=== PATIENT | male | born 1950 | race Caucasian/White ===

== ENCOUNTER → 2016-09-08 | Outpatient (CLI) | payer BC ==
[~2016-09-08] MED LIST: ADVINUNK; ALBU1AER9; MULT-506 PO; ZRYTEC
--- NOTE | 2016-09-08 10:29 | DIAGNOSTIC IMAGING REPORT ---
CHEST 2 VIEWS ROUTINE CLINICAL HISTORY: Cough. COMPARISON STUDY: Chest radiograph May 10, 2011. FINDINGS: Lung hyperexpansion is noted. No consolidation is identified. There is no pneumothorax or pleural effusion. Heart size is normal. Pulmonary vascularity is normal. IMPRESSION: 1. No acute cardiopulmonary findings. 2. Lung hyperexpansion. Electronically signed by: Mik Cha M.D. 09/08/2016 10:27 AM Dictated Date/Time: 09/08/2016 10:26 AM
== END | disposition home or self-care (01) ==
LOC: C.RAD1850 09:34
PROVIDERS: ATTEND Internal Medicine
DX: R05 Cough (principal)

== ENCOUNTER → 2016-11-11 | Outpatient (CLI) | payer BC ==
[2016-11-11 09:37] LABS: BASO % 1.2 %; BASO ABS # 0.06 K/uL (0-0.2); COMPLETE YES; EOS % 3.1 %; HEMATOCRIT 41.8 % (42-52); IG% 0.2 %; LYMPH % 22.5 %; MEAN CELL VOLUME 92.9 fL (80-100); MEAN CORPUSCULAR HEMOGLOBIN 31.8 pg (25-34); MEAN CORPUSCULAR HGB CONC 34.2 g/dl (32-36); MEAN PLATELET VOLUME 8.6 fL (7.4-10.4); MONO % 9.4 %; NEUT % 63.6 %; PLATELET COUNT 276 K/uL (130-400); WHITE BLOOD COUNT 4.88 K/uL (4.8-10.8)
[2016-11-11 09:48] LABS: ALT/SGPT 33 U/L (12-78); AST/SGOT 33 U/L (15-37); BLOOD UREA NITROGEN 12 mg/dl (7-18); BUN/CREATININE RATIO 13.2 (10-20); CARBON DIOXIDE 27 mmol/L (21-32); CHLORIDE 104 mmol/L (98-107); CHOLESTEROL 200 mg/dl (0-200); CREATININE 0.92 mg/dl (0.60-1.40); GLUCOSE 98 mg/dl (70-99); POTASSIUM 3.9 mmol/L (3.5-5.1); SODIUM 139 mmol/L (136-145); TRIGLYCERIDES 49 mg/dl (0-150); VERY LOW DENSITY LIPOPROT CALC 10 mg/dl
[2016-11-11 09:52] LABS: CHOLESTEROL/HDL RATIO 2.5; HDL CHOLESTEROL 80 mg/dl; LDL CHOLESTEROL CALCULATED 110 mg/dl
[2016-11-11 10:12] LABS: CALCIUM 9.2 mg/dl (8.5-10.1)
== END | disposition home or self-care (01) ==
LOC: C.LAB1850 08:19
PROVIDERS: ATTEND Internal Medicine
DX: E78.5 Hyperlipidemia, unspecified (principal); E55.9 Vitamin D deficiency, unspecified; K21.9 Gastro-esophageal reflux disease without esophagitis; R73.9 Hyperglycemia, unspecified; Z12.5 Encounter for screening for malignant neoplasm of prostate

== ENCOUNTER → 2017-09-05 | Outpatient (CLI) | payer BC ==
--- NOTE | 2017-09-05 17:22 | DIAGNOSTIC IMAGING REPORT ---
CHEST 2 VIEWS ROUTINE CLINICAL HISTORY: Flu-like symptoms. Chest rales. COMPARISON STUDY: Chest radiograph September 08, 2016. FINDINGS: Lung volumes are at the upper limits of normal. There is no pneumothorax or pleural effusion. There is no consolidation to suggest pneumonia. There is no evidence for pulmonary edema. Cardiomediastinal silhouette is normal. Appearance of the chest is unchanged. Pulmonary vascularity is normal. IMPRESSION: No acute cardiopulmonary findings. Electronically signed by: Mik Cha M.D. 09/05/2017 5:21 PM Dictated Date/Time: 09/05/2017 5:20 PM
== END | disposition home or self-care (01) ==
LOC: C.RAD1850 16:52
PROVIDERS: ATTEND Internal Medicine
DX: R68.89 Other general symptoms and signs (principal); R09.89 Other specified symptoms and signs involving the circulatory and respiratory systems

== ENCOUNTER → 2017-11-20 | Outpatient (CLI) | payer BC ==
[2017-11-20 09:56] LABS: HEMOGLOBIN A1C 5.6 % (4.5-5.6)
[2017-11-20 10:15] LABS: ALT/SGPT 29 U/L (12-78); AST/SGOT 28 U/L (15-37); BLOOD UREA NITROGEN 11 mg/dl (7-18); CALCIUM 8.9 mg/dl (8.5-10.1); CARBON DIOXIDE 29 mmol/L (21-32); CHOLESTEROL 211 mg/dl (0-200); CREATININE 0.89 mg/dl (0.60-1.40); GLUCOSE 101 mg/dl (70-99); POTASSIUM 3.8 mmol/L (3.5-5.1); SODIUM 138 mmol/L (136-145)
[2017-11-20 10:19] LABS: LDL CHOLESTEROL CALCULATED 118 mg/dl
== END | disposition home or self-care (01) ==
LOC: C.LAB1850 08:33
PROVIDERS: ATTEND Internal Medicine
DX: E78.5 Hyperlipidemia, unspecified (principal); R73.9 Hyperglycemia, unspecified; E55.9 Vitamin D deficiency, unspecified; Z12.5 Encounter for screening for malignant neoplasm of prostate

== ENCOUNTER 2022-06-24 08:43 | Observation (INO) ==
--- NOTE | 2022-06-17 21:11 | History and Physical Report ---
CHIEF COMPLAINT: Persistent progressive left knee pain and discomfort. HISTORY OF PRESENT ILLNESS: The patient is a 72-year-old gentleman who presents now for surgical tari atment of his left knee. He has got a long history of intermittent on and off bilateral knee pain an d discomfort, the left side a bit worse than the right. The left knee has gotten significantly worse over the past year. Fairly avid post closer and having more and more difficulty doing this. He descr ibes pain medially and posteriorly. It is increased with weightbearing. He has tried various medici magdy, which do not help really at all. He is having trouble maintaining an active lifestyle and would like to have his left knee fixed/replaced. PAST MEDICAL HISTORY: 1. History of mitral valve prolapse/mitral regurgitation. 2. Elevated cholesterol. 3. Unspecified heart palpitations. 4. Asthma. 5. Sleep apnea with CPAP machine. 6. Back pain. 7. Gastroesophageal reflux disease. 8. BPH. PAST SURGICAL HISTORY: Includes: 1. Testicular surgery. 2. Oral surgery. 3. Tonsillectomy 4. Inguinal hernia repair. 5. Foot surgery. 6. Removal of a buttock mass. ALLERGIES: ERYTHROMYCIN. CURRENT MEDICATIONS: Include: 1. Albuterol. 2. ____ [id number]. 3. Vitamin C. 4. Vitamin D3. 5. Collagen 6. Advair Diskus. 7. Glucosamine. 8. Hydrocodone/Tylenol. 9. Licorice root. 10. Magnesium. 11. Memory pill. 12. Saw palmetto. 13. Sildenafil. 14. ____. 15. Vitamin B. SOCIAL HISTORY: A 72-year-old male. He is . He does not drink. FAMILY HISTORY: Noncontributory. REVIEW OF SYSTEMS: Negative for diabetes. No chest pain or shortness of breath. No history of DVT or PE. No known bleeding problems. PHYSICAL EXAMINATION: GENERAL: Shows a healthy, thin, middle-aged gentleman. He looks younger than his stated age. Looks to be in excellent health. HEENT: Benign. NECK: Supple. No lymphadenopathy. LUNGS: Clear to auscultation. HEART: Has a regular rate and rhythm. ABDOMEN: Soft, nontender, nondistended. EXTREMITIES: Grossly neurovascularly intact except as follows: Examination of the left knee reveals a patient who ambulates with a slight bit of a limp. He has got varus alignment to his knee with a varus thrust with weightbearing. He has got bony hypertrophy medially. Tender with medial joint aaron e. Small knee effusion. Range of motion is about 5 degrees short of full extension to 115 degrees o f flexion. No instability. No pain with hip motion. X-RAYS: X-rays of the left knee were reviewed. It shows advanced medial compartment arthritis. He has got complete loss of medial joint space. He has got subchondral sclerosis. He has got osteophyt es medially with a little bit of tibiofemoral subluxation. 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 He has failed conservative treatment and would like to have his left knee fixed to maintain an active lifestyle. PLAN: We will go ahead and proceed with left knee replacement. The risks and benefits of this proce dure were explained to the patient and include, but not limited to, DVT, PE, , infection, neurol ogical injury, vascular injury, bleeding problems, pain, limited range of motion, stiffness, failure to relieve his symptoms, incomplete relief of symptoms, need for further surgery in the future. The patient understands and desires to proceed. Informed consent was obtained. Of note, he did recently just have a surgery by Dr. Patel where they took out some type of a buttock l esion without difficulty. He has seen Dr. Cedeno in the past for cardiac concerns, but he has been told he needs no further fo llowup at this point. As far as discharge plans, he is planning to be discharged to home using the [facility] home health pr ogke[facility]. Will use aspirin for DVT prophylaxis. Job ID: [id number]
--- NOTE | 2022-06-20 12:27 | Anesthesiology Consultation ---
Date of Service June 20, 2022 Assessment & Plan (1) Encounter for pre-operative examination: Chart Review Chart Review: Pending: Refer to Additional Notes / Consult section (pending cardio response re: if patient optimized for surgery ) and Patient NOT seen in Pre Admission Testing -Awaiting cardio response to workload note re: patient's upcoming surgery and if patient is optimized -Pt is NOT acceptable Outpatient Joint candidate -COVID screening: Per PAT nursing assessment on 06/20/22. No known COVID-19 positive contacts or current COVID-19 related symptoms. Travel screen negative. Patient vaccinated for Covid. At surgeon discretion if preop Covid testing being done. Right buttock nodular excision 03/22/22= Done under MAC. Last seen by cardiology 02/15/2022 = seen for routine follow-up. Doing well from cardiac standpoint. Gets serial stress echocardiogramsrecent stress echoes have showed no declining systolic function, pulmonary hypertension or other evidence of substantial cardiovascular compromise from his significant mitral regurgitation. In general it was felt that his regurgitation may be more moderate than severe, however there was some concern that his study from 2016 lacked clear augmentation post exercise, so he was planned to be followed with annual stress echocardiograms. He is due for repeat study but given his knee problems we will defer this for a few monthsonce he recovers from his knee injection and increase his activitywe will proceed with stress echocardiogram. No changes to current medical regiment. Follow-up annually. History Surgery Operation Date: 06/24/22 08:50 Proposed Procedures p Left Total Knee Arthroplasty - Zbigniew Peterson MD Height/Weight Height: 5 ft 11 in Weight: 67.132 kg Allergies Allergy/AdvReac Type Severity Reaction Status Date / Time cat dander Allergy Unknown sneezing, Verified 06/20/22 11:12 watery eyes erythromycin base Allergy Unknown Rash IN Verified 06/20/22 11:12 MOUTH mold Allergy Unknown sneezing, Verified 06/20/22 11:12 watery eyes ragweed pollen Allergy Unknown sneezing, Verified 06/20/22 11:12 watery eyes tree and shrub pollen Allergy Unknown sneezing, Verified 06/20/22 11:12 watery eyes Medications Home Medications Medication Instructions Recorded Confirmed Last Taken sildenafil 100 mg tablet 100 mg PO UD PRN sexual activity 02/24/19 06/20/22 Unknown cholecalciferol (vitamin D3) 125 1,000 units PO 3XWK 06/17/19 06/20/22 04/05/21 mcg (5,000 unit) capsule betaine 1 tab PO QAM 02/11/21 06/20/22 04/05/21 vitamin B complex (B 1 tab PO QAM 02/11/21 06/20/22 04/05/21 Complex-Vitamin B12 tablet) albuterol sulfate 90 mcg/actuation 2 puff inhalation UD PRN PRIOR TO 03/24/21 06/20/22 Unknown aerosol inhaler (ProAir HFA) EXCERCISE #1 inhaler magnesium 200 mg tablet 420 mg PO QPM 10/04/21 06/20/22 Unknown ascorbic acid (vitamin C) 25 mg 1,000 mg PO QAM 02/22/22 06/20/22 Unknown tablet cyanocobalamin (vitamin B-12) 500 1,000 mcg PO 3XWK 02/22/22 06/20/22 Unknown mcg tablet tryptophan 500 mg tablet 500 mg PO HS 02/22/22 06/20/22 Unknown Andrographis Otc 400 mg PO QPM 03/15/22 06/20/22 Unknown Ashwagandha Otc 1 tab PO QPM 03/15/22 06/20/22 Unknown Collagen And Boswella Otc 2 tab PO QPM 03/15/22 06/20/22 Unknown Memory Pill Otc 1 tab PO BID 03/15/22 06/20/22 Unknown glucosamine-chondroitin 250 mg-200 2 tab PO BID 03/15/22 06/20/22 Unknown mg tablet (Osteo Bi-Flex) licorice root (G.glabra) 450 mg 450 mg PO QPM 03/15/22 06/20/22 Unknown capsule saw palmetto 450 mg capsule 450 mg PO BID 03/15/22 06/20/22 Unknown hydrocodone 5 mg-acetaminophen 325 1 tab PO Q4H PRN pain #10 tabs 03/22/22 06/20/22 Unknown mg tablet Wheeled Walker #1 ea 04/01/22 04/06/22 Unknown fluticasone 500 mcg-salmeterol 50 1 inh inhalation QAM 06/20/22 06/20/22 Unknown mcg/dose blistr powdr for inhalation Past Medical History Medical History Asthma Bilateral tinnitus Bursitis right elbow Difficulty swallowing HX OF ENDOSCOPY FOR ... ? RESULT DETAILS Enlarged prostate without lower urinary tract symptoms (luts) Esophageal reflux Hearing deficit History of back problems Hx of hepatitis C tested over 15 yrs ago, since tested negative Hyperlipidemia DIET CONTROLLED Moderate to severe mitral regurgitation follows with Dr. Cedeno Sensorineural hearing loss (SNHL) of left ear with restricted hearing of right ear Sleep apnea cpap Past Family History Family History Sister Brain cancer Aunt Myocardial infarction Mother Myocardial infarction Other No family history of adverse response to anesthesia Denies family history of Ovarian cancer Prostate cancer Breast cancer Colorectal cancer Past Surgical History Surgical History H/O excision of mass (04/06/21) Excision of left forearm mass, [address] Patel 04/06/2021 H/O excision of mass (03/22/22) Excision of right buttock nodule. Dr. Patel H/O removal of cyst History of anesthesia reaction had difficulty voiding after foot surgery--"had too much anesthesia" ? SLOW TO WAKE UP History of colonoscopy with polypectomy History of esophagogastroduodenoscopy (EGD) History of foot surgery History of foot repair on CCD History of left inguinal hernia repair History of prostate biopsy History of right inguinal hernia repair x2 History of testicular surgery varicose vein sx History of wisdom tooth extraction Hx of tonsillectomy Status post surgery Varicose vein surgery Social History Smoking Status: Never smoker Do You Dip or Chew Tobacco: No Hx Alcohol Use: Yes Alcohol type: beer alcohol intake frequency: holidays/special occasions only Hx Substance Use: No substance use type: does not use Lab Results Anesthesia Preop Results Results Anesthesia Widget: WBC 5.6 Thousand/uL (3.8-10.8) 06/17/22 Hgb 14.5 g/dL (13.2-17.1) 06/17/22 Hct 40.3 % (38.5-50.0) 06/17/22 Plt 264 Thousand/uL (140-400) 06/17/22 Na 138 mmol/L (135-146) 06/17/22 K 4.1 mmol/L (3.5-5.3) 06/17/22 Cl 101 mmol/L (98-110) 06/17/22 CO2 25 mmol/L (20-32) 06/17/22 BUN 13 mg/dL (7-25) 06/17/22 Creat 0.83 mg/dL (0.70-1.28) 06/17/22 Glucose Level 67 mg/dL (65-99) 06/17/22 Testing Laboratory Results 06/16/22= PT: 9.8 INR: 1.0 PTT: 27 Electrocardiogram Date: 03/16/22 Findings: + NSR @ (61bpm ) Normal EKG per cardio. Chest X-Ray Date: 06/15/22 Findings: + NAD Echocardiogram Date: 05/04/22 EF: >70% RWMA: + none Other Findings: + diastolic dysfunction (Grade 2); no LVH Compared with 03/26/2020 study, no change in severity of mitral regurgitation, small pericardial effusion is new Left ventricle borderline dilated. Left ventricle is hyperdynamic. Myxomatous valve with bilateral prolapse and severe mid to late systolic mitral regurgitation (no regurgitation early in systole) Left atrium mildly dilated RVSP is normal. Small pericardial effusion (less than 1 cm) noted anterior only. This does not appear hemodynamically significant Stress Test Date: 03/26/20 Type: exercise (ECHO ) Negative exercise stress echocardiogram and EKG for ischemia at >100% MPHR. Compared to 05/12/2017 stress study, minimal decrease in Exercise tolerance, no change in severity of mitral regurgitation. Myxomatous valve with bilateral prolapse and severe mid to late systolic mitral regurgitation (no regurgitation early in systole) Pulmonary Function Test Date: 04/14/22 Spirometry demonstrates mild obstructive small airway disease. FVC and FEV1 are normal. FEF 2575 is reduced at 67% of predicted. No significant change when compared to previous PFTs Impression: Mild obstructive airway diseasestable.
[~2022-06-24 08:43] MED LIST changes: +ACETAMINOPHEN 500 MG TAB PO SCH; -ADVINUNK; -ALBU1AER9; +BUPIVACAINE 0.5 % 5 MG/1 ML PF 10ML VIAL ONE; +BUPIVACAINE LIPOSOME/PF 266 MG, BUPIVACAINE/EPINEPHRINE 50 ML, SODIUM CHLORIDE 0.9% 30 ... INFIL SCH; +CeleBREX 200 MG CAP PO SCH; +FAMOTIDINE 20 MG TAB PO SCH; +LR 500ML BOLUS, THEN 15ML/HR IV SCH; +LR 60ML/HR IV SCH; +METOCLOPRAMIDE HCL 10 MG TABLET PO SCH; -MULT-506 PO; +ROPIVACAINE 0.5% 5 MG/ML 30 ML VIAL ONE; +TRANEXAMIC ACID 1,000 MG **IV Intra-op IV SCH; -ZRYTEC; +ceFAZolin 2000MG 2,000 MG/15 ML SYR IV SCH
--- NOTE | 2022-06-24 09:03 | History & Physical Bridge Note ---
Date of Service June 24, 2022 History & Physical Bridge Note I have examined the patient, reviewed the History & Physical and in the interval since the performance of the History & Physical I have noted the following changes of clinical significance: no changes noted
[2022-06-24] MEDS ORDERED: MIDAZOLAM HCL 1 MG/ML 2ML VIAL ONE (09:43)
[2022-06-24] MEDS ORDERED: ONDANSETRON INJ 2 MG/ML 2 ML VIAL ONE (09:44)
[2022-06-24] MEDS ORDERED: PROPOFOL IV EMULSION 10 MG/ML 20 ML VIAL IV ONE ×2 (09:44→13:00)
[2022-06-24 09:54] LABS: Partial Thromboplastin Time 26.2 Seconds (21.0-31.0); Prothrombin Time 11.1 Seconds (9.0-12.0)
[2022-06-24] MEDS ORDERED: fentaNYL citrate 100 MCG/2 ML VIAL IV PRN (10:40)
[2022-06-24] MEDS ORDERED: ONDANSETRON INJ 2 MG/ML 2 ML VIAL IV PRN ×2 (10:40→16:00)
[2022-06-24] MEDS ORDERED: ePHEDrine sulfate 50 MG/ML AMP IV PRN (10:40)
[2022-06-24] MEDS ORDERED: HYDROmorphone INJ 2 MG/ML SYR/VIAL IV PRN (10:40)
[2022-06-24] MEDS ORDERED: ATROPINE SULFATE 0.1 MG/ML 10ML SYR IV PRN (10:40)
[2022-06-24] MEDS ORDERED: SODIUM CHLORIDE 0.9% INJ 10 ML VIAL ONE (11:19)
[2022-06-24] MEDS ORDERED: BUPIVACAINE LIPOSOME 1.3% 266 MG/20 ML VIAL ONE (11:20)
[2022-06-24] MEDS ORDERED: BUPIVACAINE/EPINEPHRINE 0.25% 1:200,000 30 ML VIAL ONE (11:20)
[2022-06-24] MEDS ORDERED: LIDOCAINE 2% MPF LOCAL 5 ML VIAL INFIL ONE (11:55)
--- NOTE | 2022-06-24 13:20 | Operative Report ---
PG Post Operative Report Pre & Post Diagnosis Operation Date: 06/24/22 10:40 Pre-Op Diagnosis: Left Knee Degenerative Joint Disease Post-Op Diagnosis: Left Knee Degenerative Joint Disease I identified the patient and participated in the time-out.: Yes Procedure Operation Date: 06/24/22 10:40 Actual Procedures p Left Total Knee Arthroplasty(Left) - Zbigniew Peterson MD Surgeon Zbigniew Peterson MD Supervisor [place] Gab Platt PA-C Estimated Blood Loss 50 Findings Consistent with Post-Op Diagnosis Operative findings revealed advanced left knee medial compartment DJD. Extensive grade 4 [id number] disease and eburnation medial compartment a fixed varus deformity to his knee. Osteophytes primarily medial compartment. Its spotty changes and grade 4 changes in the patellofemoral and lateral compartment. Moderate-sized joint effusion. Specimens Left knee sent for pathology. Drains None Complications none Disposition Accompanied Patient To Recovery: No Indications Patient 72-year-old gentleman said a long history of bilateral knee pain discomfort left side quite bit worse than the right. He has been through extensive conservative care which became less successful over time. X-rays show advanced medial compartment arthritis. He elected proceed with surgical treatment. Description of Procedure Operative implants consist of: 1 Biomet Vanguard size 70 left posterior stabilized femoral component. 2. Biomet size 75 tibial tray. 3. 12 mm posterior stabilized polyethylene insert. 4. 31 x 8 all Paller patella. The patient was taken the operating, identified, placed on the operating table supine position protectors were properly padded. IV antibiotics tried by anesthesia team. Spinal anesthetic and abductor canal block had provided in the holding area. Orantes catheter was placed in sterile fashion left after was then placed in left lower extremity then prepped draped in usual sterile fashion. The left leg was elevated exsanguinated with use of an Esmarch interspaced at 3 mmHg. An anterior posterior left knee was then performed through a longitudinal incision centered over the patella. Sharp dissection was carried through subcutaneous tissue down the extensor mechanism. A medial parapatellar throbbed incision was made. Some subperiosteal dissection was carried out medially. The fat pad was resected from Neath patella tendon. Lapra-Ty from ligament was released. Patella subluxated laterally and the knee was flexed. The osteophytes taken off distal femur. ACL PCL were then released from distal femu r the tibia subluxated anteriorly. External tibial alignment jig was then placed on the anterior face of the tibia and adjusted 14 mm medially. Proximal tibial cut was made removed 2 mm of bone from the medial side. The tibia was then sized to a size 75. Attention drawn the femur. The distal femur with a sharp drop with intramedullary canal was suction. A left 6 degree valgus cutting guide was placed. Distal femoral cutting block was pinned in place. This femoral cut was then made to take an additional 3 mm bone off distal femur. The femur was then sized to a size 70. The AP cutting block was pinned parallel to the epicondylar axis which was 5 degrees of external rotation. Anterior cut, anterior chamfer, posterior cut, posterior chamfer cuts were made. Box cutting guide was placed in just slight lateral box cut was made to the knee was flexed to the remnants of the medial and lateral menisci were excised with the osteophyte taken off the posterior aspect the femur. A trial femoral component was placed. Tibial tray was pinned in maximum external rotation and the drill and stem punch used. Defect in proximal tibia for the tibial tray. The knee was then trialed the 12 mm insert fit most appropriately. Attention drawn the patella. The patella was cleaned of all soft tissues. Patella thickness measured 22 mm in thickness and was cut down to 14. Was sized to a size 31 patella. The lug holes were drilled for the 31 patella. Lateral osteophytes Button was placed. Knee was taken through range of motion and the patella tracked nicely with no thumbs test. Attention drawn towards placing the permanent components. Nupathe all trial components were removed. Bone plug was placed in the distal femur limit blood loss. Double batch Palacos G cement was mixed. Biomet Vanguard size 70 left posterior stabilized femoral component, size 75 tibial tray, a 12 mm posterior margin polyethylene insert, and a 31 x 8 all Paller patella then cemented in place. New spreadout in full extension total cement hardened. Final cement check was then performed. The pericapsular tissues were injected total 100 cc of combination of 20 cc of Exparel, 30 cc normal saline, 50 cc of quarter percent Marcaine with epinephrine. Patient did receive 1 g tranexamic acid. The tourniquet was let down for final tourniquet time of 55 minutes. Hemostasis reduced electrocautery to the extensor mechanism closed with combination 1 PDS suture #1 Vicryl suture in [id number] fashion. Extensor mechanism checked found to be intact the subcutaneous tissue then closed with 2 Dexon suture in a buried interrupted fashion skin was closed skin naheed. Legs then cleaned and dried a sterile dressing of Xeroform, 4 fours, sterile cast padding, Mateusz bandage were applied. Patient then transferred to the recovery in stable condition. Patient tolerated the procedure well and there were no complications. Gab Platt, physician perioperative assistant, was present for the entire procedure. His assistance was required for proper patient positioning, prepping and draping, surgical exposure, retraction, perform the technical details the operation, placing the implants, closure of the wound, placement of sterile bandage. I attest to the content of the Intraoperative Record and any orders documented therein. Any exceptions are noted below.
--- NOTE | 2022-06-24 13:39 | XRay Report ---
XR knee LT 1 or 2V routine HISTORY: 72 years-old Male Surgical Post Op left knee total joint arthroplasty COMPARISON: Knee radiographs 04/01/2022 TECHNIQUE: AP and lateral views of the chest FINDINGS: Total joint arthroplasty with patellar resurfacing. Anterior midline skin naheed are noted along wit h expected postoperative soft tissue swelling with deep tissue air. No acute fracture or unexpected o paque foreign body. Arterial calcifications. IMPRESSION: Total joint arthroplasty with expected postoperative changes. ACT 112: Negative or not required by law. The above report was generated using voice recognition software. It may contain grammatical, syntax o r spelling errors. Electronically signed by: Gustavo Mario M.D. 06/24/2022 1:38 PM
--- NOTE | 2022-06-24 14:38 | Anesthesiology Progress Note ---
Date of Service June 24, 2022 Anesthesia Post Procedure Vital Signs Vital Signs: Temp Pulse Pulse Resp BP Pulse Ox O2 Del Method 06/24/22 14:10 80 21 102/61 96 Nasal Cannula 06/24/22 14:00 70 15 111/63 97 Nasal Cannula 06/24/22 14:20 71 19 97/60 L 97 Nasal Cannula 06/24/22 13:50 72 17 101/63 95 Nasal Cannula 06/24/22 13:40 76 15 96/59 L 93 Room Air 06/24/22 13:30 74 16 103/58 L 99 Room Air 06/24/22 13:20 78 19 94/62 L 99 Oxymask 06/24/22 13:12 36.0 C L 80 13 102/64 98 Oxymask 06/24/22 09:15 36.8 C 82 20 140/79 92 Room Air O2 Flow Rate 06/24/22 14:10 2 06/24/22 14:00 2 06/24/22 14:20 2 06/24/22 13:50 2 06/24/22 13:40 06/24/22 13:30 06/24/22 13:20 5 06/24/22 13:12 5 06/24/22 09:15 Pain Intensity Left Knee: Pain Intensity: 3 Transfer of Care Handoff Completed per policy Notes Mental Status: alert / awake / arousable and participated in evaluation Patient Amnestic to Procedure: Yes Nausea / Vomiting: adequately controlled Pain: adequately controlled Airway Patency, RR, SpO2: stable & adequate BP & HR: stable & adequate Hydration State: stable & adequate Neuraxial Anesthesia: was administered and sensory block is resolving Anesthetic Complications: no major complications apparent and Pt Satisfied with anesthetic care
[2022-06-24] MEDS ORDERED: NALOXONE HCL 0.4 MG/1 ML VIAL/CARP IV PRN (16:00)
[2022-06-24] MEDS ORDERED: bisacodyL 10 MG SUPP PR PRN (16:00)
[2022-06-24] MEDS ORDERED: METOCLOPRAMIDE HCL INJ 5 MG/ML 2 ML VIAL IV PRN (16:00)
[2022-06-24] MEDS ORDERED: ALBUTEROL HFA 8 GM INHALER INH PRN (16:00)
[2022-06-24] MEDS ORDERED: NON-FORMULARY MEDICATION (Sildenafil 100 mg tablet) PO PRN (16:00)
[2022-06-24] MEDS ORDERED: MAGNESIUM HYDROXIDE SUSP 30 ML UDC PO PRN (16:00)
[2022-06-24] MEDS ORDERED: HYDROmorphone INJ 0.5 MG/0.5 ML SYR IV PRN (16:00)
[2022-06-24] MEDS ORDERED: ALUMINUM/MAGNESIUM SUSP 30 ML UDC PO PRN (16:00)
[2022-06-24] MEDS: SODIUM CHLORIDE 0.9% 1000ML 1,000 ML IV SCH (16:25)
[2022-06-24] MEDS: KETOROLAC TROMETHAMINE 15 MG/ML VIAL IV SCH ×2 (17:14→23:48)
[2022-06-24] MEDS: ASCORBIC ACID 500 MG TAB PO SCH (17:36)
[2022-06-24] MEDS ORDERED: TRANEXAMIC ACID / 0.7% NACL 1,000 MG/100 ML BAG IV SCH (19:15)
[2022-06-24] MEDS: ceFAZolin 1000MG 1,000 MG/7.5 ML SYR IV SCH (20:01)
[2022-06-24] MEDS: ASPIRIN 81 MG ECTAB PO SCH (20:02)
[2022-06-24] MEDS: DOCUSATE SODIUM 100 MG CAP PO SCH (20:02)
[2022-06-24] MEDS: GLUCOSAMINE SULFATE 500 MG CAP PO SCH (20:03)
[2022-06-24] MEDS: TAPENTADOL HCL ER 50 MG TABCR PO SCH (20:05)
[2022-06-24] MEDS ORDERED: TRYPTOPHAN 500 MG PO SCH (21:00)
[2022-06-24] MEDS ORDERED: [UNRECOGNIZED DRUG - OTHER] PO SCH (21:00)
[2022-06-24] MEDS ORDERED: SENNA 8.6 MG TAB PO SCH (21:00)
[2022-06-24] MEDS ORDERED: NON-FORMULARY MEDICATION (Saw Palmetto 450 mg Capsule) PO SCH (21:00)
[2022-06-24] MEDS ORDERED: MAGNESIUM OXIDE 400 MG TAB PO SCH (21:00)
[2022-06-24] MEDS ORDERED: [UNRECOGNIZED DRUG - OTHER] PO SCH (21:00)
[2022-06-24] MEDS ORDERED: [UNRECOGNIZED DRUG - OTHER] PO SCH (21:00)
[2022-06-24] MEDS ORDERED: [UNRECOGNIZED DRUG - OTHER] PO SCH (21:00)
[2022-06-24] MEDS ORDERED: ASHWAGANDHA PO SCH (21:00)
[2022-06-24] MEDS: ACETAMINOPHEN 500 MG TAB PO SCH (21:34)
[2022-06-25] MEDS: SODIUM CHLORIDE 0.9% 1000ML 1,000 ML IV SCH (02:21)
[2022-06-25] MEDS: ceFAZolin 1000MG 1,000 MG/7.5 ML SYR IV SCH (03:55)
[2022-06-25] MEDS: KETOROLAC TROMETHAMINE 15 MG/ML VIAL IV SCH ×2 (06:15→13:12)
[2022-06-25] MEDS: ACETAMINOPHEN 500 MG TAB PO SCH ×2 (06:15→13:13)
[2022-06-25] MEDS: oxyCODONE HCL IR 5 MG TAB (IMMEDIATE RELEASE) PO PRN ×2 (07:24→15:45)
[2022-06-25 07:52] LABS: Hematocrit (blood only) 30.8 % (40.1-51.0); Hemoglobin 10.9 g/dl (14.0-18.0); Mean Corpuscular Hemoglobin 33.3 pg (25.0-34.0); Mean Corpuscular Hgb Conc 35.4 g/dL (32.0-36.0); Mean Corpuscular Volume 94.2 fL (80.0-100.0); Mean Platelet Volume 8.8 fL (9.4-12.4); Platelet Count 191 K/uL (130-400); RDW Coefficient of Variation 12.7 % (11.5-14.5); RDW Standard Deviation 43.9 fL (36.4-46.3); Red Blood Count 3.27 M/uL (4.63-6.08)
[2022-06-25] MEDS ORDERED: dexAMETHasone 10 MG in SYRINGE 0 ML IV SCH (08:00)
[2022-06-25 08:34] LABS: BUN Creatinine Ratio 20.8 (10-20); Calcium 7.9 mg/dl (8.5-10.1); Creatinine Clr Calc Pharmacy 80.4 ml/min; Est GFR (African American) 104.3 ml/min
--- NOTE | 2022-06-25 08:43 | Progress Notes ---
SUBJECTIVE: A 72-year-old gentleman postoperative day 1 from a left knee replacement. He is doing p retty well. Having a little bit more pain this morning, took some oxycodone, doing much better. Fee ls pretty comfortable. He is hoping to go home. OBJECTIVE: VITAL SIGNS: Temperature 36.8. Vital signs are stable. GENERAL: Shows a pleasant middle-aged male. He is sitting up in bedside chair, looks comfortable. LUNGS: Clear to auscultation. HEART: Regular rate and rhythm. ABDOMEN: Soft, nontender, nondistended. EXTREMITIES: Grossly neurovascularly intact except as follows. Examination of the left leg reveals the dressing to be clean, dry and intact. He can dorsiflex and p lantarflex his foot appropriately. He is neurologically intact. LABORATORY DATA: Hemoglobin 10.9. Hematocrit 30.8. Electrolytes are pending. ASSESSMENT: A 72-year-old gentleman, postoperative day 1 from a left knee replacement, doing pretty well. Pain is controlled. He is neurologically intact. PLAN: 1. DVT prophylaxis includes thigh-high TEDs, SCDs, and aspirin twice a day. 2. PT, OT, weightbear as tolerated. Left total knee protocol. 3. Pain control, doing okay with current pain regimen. 4. Disposition: Plan to discharge to home with some home health later today if doing okay. Job ID: [id number]
[2022-06-25] MEDS: GLUCOSAMINE SULFATE 500 MG CAP PO SCH (08:48)
[2022-06-25] MEDS: ASPIRIN 81 MG ECTAB PO SCH (08:48)
[2022-06-25] MEDS: DOCUSATE SODIUM 100 MG CAP PO SCH (08:48)
[2022-06-25] MEDS: ASCORBIC ACID 500 MG TAB PO SCH (08:52)
[2022-06-25] MEDS: TAPENTADOL HCL ER 50 MG TABCR PO SCH (08:52)
[2022-06-25] MEDS ORDERED: TAMSULOSIN HCL 0.4 MG CAP PO SCH (09:00)
[2022-06-25] MEDS ORDERED: DOCUSATE SODIUM/SENNA 50/8.6MG TAB PO SCH (09:00)
[2022-06-25] MEDS ORDERED: FLUTICASONE/VILANTEROL 200/25MCG 14 PUFFS/INHALER INH SCH (09:00)
[2022-06-25] MEDS ORDERED: ASCORBIC ACID PO SCH (09:00)
[2022-06-25] MEDS ORDERED: VITAMIN B COMPLEX TAB PO SCH (09:00)
[2022-06-25] MEDS ORDERED: [UNRECOGNIZED DRUG - OTHER] PO SCH (09:00)
[2022-06-25] MEDS ORDERED: MULTIVITAMIN TAB PO SCH (09:00)
[2022-06-27] MEDS ORDERED: CYANOCOBALAMIN (B-12) 500 MCG TABLET PO SCH (09:00)
[2022-06-27] MEDS ORDERED: CHOLECALCIFEROL 1,000 UNITS 25 MCG TAB PO SCH (09:00)
--- NOTE | 2022-06-28 13:18 | Discharge Summary ---
Date of Service June 28, 2022 Discharge Data Procedures Performed Operation Date: 06/24/22 10:40 Actual Procedures p Left Total Knee Arthroplasty(Left) - Zbigniew Peterson MD Hospital Course (1) Status post total left knee replacement: This is a 72 year old patient admitted on 06/24/22 and underwent total knee arthroplasty. She tolerated the procedure well and there were no complications. Transferred to the PACU post op and later to the orthopedic floor for further care. He was given ancef for antibiotic prophylaxis. He was also given MONY stockings, SCDs, and aspirin for DVT prophylaxis. Hemoglobin, hematocrit, and vital signs were monitored during his hospital stay and remained stable. Did not require any blood transfusions. There were no complications during his hospital stay. By post op day #1 the patient was tolerating a regular diet, pain was reasonably controlled with oral pain medicine, and he was participating in physical therapy. On post op day #1 the patient was discharged home and set up with home health care. He was given printed discharge instructions including prescriptions for extra strength tylenol, aspirin, cefadroxil, zofran, ketorolac, senokot, flomax, and oxycodone. Continue physical therapy, weight bearing as tolerated. Continue MONY stockings. Follow up approximately 2 weeks post op or sooner if there are problems or concerns. Coding Level of Care Code None Diagnoses Status post total left knee replacement Z96.652
== END 2022-06-25 16:55 | disposition home health service (06) ==
LOC: 3E 08:43 → ASU 08:43
DX: M17.12 Unilateral primary osteoarthritis, left knee; Z79.82 Long term (current) use of aspirin; Z79.899 Other long term (current) drug therapy